=== PATIENT | male | born 1990 | race Hispanic/Latino ===

== ENCOUNTER 2017-11-26 01:12 | Emergency (ER) | payer SELFPAY ==
--- NOTE | 2017-11-26 03:35 | ED PDOC ---
HPI: Psych/Substance Abuse Time Seen by Provider: 11/26/17 01:27 Chief Complaint (Nursing): Alcohol Ingestion ED Caveat: Acuity of Condition, Intoxicated History Per: Patient History/Exam Limitations: no limitations Onset/Duration Of Symptoms: Hrs Current Symptoms Are (Timing): Still Present Modifying Factor(s): Alcohol Additional Complaint(s): Patient brought in for intoxication, patient cannot provide further history at this time, although states he did not injure himself. Past Medical History Reviewed: Nursing Documentation, Vital Signs, Unable To Obtain Vital Signs: Last Vital Signs Temp Pulse 136 H 11/26/17 01:14 Resp 16 11/26/17 01:14 BP Pulse Ox 97 11/26/17 01:14 - Family History Family History: States: Unknown Family Hx - Allergies Allergies/Adverse Reactions: Allergies Allergy/AdvReac Type Severity Reaction Status Date / Time Unobtainable Allergy Verified 11/26/17 01:16 Review of Systems Review Of Systems: ROS cannot be obtained secondary to pt's inabilty to answer questions. Physical Exam - Reviewed Nursing Documentation Reviewed: Yes Vital Signs Reviewed: Yes - Physical Exam Appears: Positive for: Non-toxic, No Acute Distress. Negative for: Well ( Intoxicated Appearing) Head Exam: Positive for: ATRAUMATIC, NORMAL INSPECTION, NORMOCEPHALIC Skin: Positive for: Normal Color, Warm, DRY Eye Exam: Positive for: EOMI, Normal appearance, PERRL ENT: Positive for: Normal ENT Inspection Neck: Positive for: Normal, Painless ROM Cardiovascular/Chest: Positive for: Regular Rate, Rhythm Respiratory: Positive for: CNT, Normal Breath Sounds Gastrointestinal/Abdominal: Positive for: Normal Exam, Soft Back: Positive for: Normal Inspection Extremity: Positive for: Normal ROM Neurologic/Psych: Positive for: Alert, Oriented, Other (Slurred speech). Negative for: Motor/Sensory Deficits - ECG O2 Sat by Pulse Oximetry: 97 Pulse Ox Interpretation: Normal Medical Decision Making Medical Decision MakinAM Patient brought in for intox -patient was unsteady on gait, tried to get up, nearly fell, requiring sedation for patient's own safety -will get ETOH level and re-eval 0700 Patient is still unsteady on his gait, will endorse to Dr. Fagan pending re-eval. Disposition - Clinical Impression Clinical Impression: Alcohol abuse - Patient ED Disposition Is Patient to be Admitted: Transfer of Care - Disposition Disposition: Transfer of Care Disposition Time: 07:00 Condition: STABLE Instructions: Alcohol Abuse and Alcoholism (DC) Forms: [employer] (Indonesian) Patient Signed Over To: Mayda Fagan Handoff Comments: pending sobriety
--- NOTE | 2017-11-26 07:04 | ED PDOC ---
- ECG O2 Sat by Pulse Oximetry: 97 Medical Decision Making Medical Decision Makina- endorsed by Dr. Polo. Patient intoxicated. Required meds for agitation. Pending sobriety. 9.00a - patient has steady gait. awake. able to use toilet. Disposition Doctor Will See Patient In The: Office Counseled Patient/Family Regarding: Diagnosis, Need For Followup - Clinical Impression Clinical Impression: Alcohol intoxication - POA Present On Arrival: None - Disposition Disposition: Routine/Home Disposition Time: 09:00 Condition: STABLE Instructions: Alcohol Abuse and Alcoholism (DC) Forms: [employer] (Indonesian)
[2017-11-26 09:32] VITALS: BP 127/78; PULSE 78; RESP 19; TEMP 97; O2SAT 98
== END 2017-11-26 09:30 | disposition home or self-care (01) ==
LOC: H.ER 01:12
DX: F10.129 Alcohol abuse with intoxication, unspecified (principal)
CPT/HCPCS: 82948; 96372; 99285; G0480; J1630; J2060